=== PATIENT | female | born 1980 | race Hispanic/Latino ===

== ENCOUNTER → 2016-07-23 | Outpatient (CLI) | payer SELFPAY ==
--- NOTE | 2016-07-23 13:55 | US ---
EXAM DESCRIPTION: Soft Tissue,Head/Neck CLINICAL HISTORY: 36 years Female, [place] COMPARISON: None. TECHNIQUE: Grayscale limited ultrasound of the neck within the area of palpable abnormality was performed. FINDINGS: Normal subcutaneous adipose tissue and strap musculature within the base of the right neck. No mass noted. IMPRESSION: Unremarkable limited ultrasound of the right base of neck. Electronically signed by: Raul Nino MD 07/23/2016 1:53 PM PROGRESS CLERK
--- NOTE | 2016-07-23 13:56 | US ---
EXAM DESCRIPTION: Thyroid CLINICAL HISTORY: 36 years Female, [place] COMPARISON: None. TECHNIQUE: Grayscale and color Doppler imaging of the thyroid gland was performed. Static images were saved patient's medical record. FINDINGS: The right thyroid lobe measures 4.2 cm craniocaudal, the left measures 3.7. The isthmus measures 3 mm in diameter. The parenchyma of the thyroid gland is normal in echogenicity. There is a 8 mm nodule noted within the posterior margin of the right thyroid lobe. IMPRESSION: Today's exam demonstrates a small indeterminate 8 mm nodule within the mid right thyroid lobe. This is likely benign given its small size and isoechoic echogenicity. Recommend one-year follow-up. Electronically signed by: Raul Nino MD 07/23/2016 1:55 PM HEALTH PROGRAM MANAGER
== END | disposition home or self-care (01) ==
LOC: US 09:35
PROVIDERS: ATTEND Nurse Practitioner Family
DX: E04.1 Nontoxic single thyroid nodule (principal)